=== PATIENT | female | born 1970 | race Caucasian/White ===

== ENCOUNTER → 2017-09-02 16:48 | Emergency (ER) | payer OTHER ==
[2014-07-30 08:20] VITALS: BMI 35.6
[~2017-09-02 16:48] MED LIST: HYDROCODONE-APA1 TAB PO; MECLIZINE HCL25 MG PO
[2017-09-02 17:25] LABS: BASOPHILS 0.1 % (0-2); HEMATOCRIT 42.2 % (36.0-48.0); HEMOGLOBIN 13.9 g/dL (12-16); IMMATURE GRANULOCYTES 0.2 % (0-5); LYMPHOCYTES 28.7 % (15-50); MCHC 32.9 g/dL (31.0-37.0); MCV 94.2 fL (80.0-100.0); MONOCYTES 7.2 % (2-11); NEUTROPHILS 61.8 % (40-80); PLATELET COUNT 297 10x3/uL (130-400); RBC 4.48 10x6/uL (4.00-5.40); RDW 12.7 % (11.5-14.5); WBC 8.6 10x3/uL (4.8-10.8)
[2017-09-02 17:41] LABS: ALBUMIN 3.8 g/dL (3.4-5.0); ALKALINE PHOSPHATASE 88 U/L (46-116); ALT (SGPT) 35 U/L (10-68); BILIRUBIN - TOTAL 0.27 mg/dL (0.2-1.3); CALC OSMOLALITY 277 mosm/kg (275-300); CALCIUM 8.6 mg/dL (8.5-10.1); CARBON DIOXIDE 27.6 mmol/L (21.0-32.0); CHLORIDE - SERUM 103 mmol/L (98-107); GLUCOSE 88 mg/dL (74-106); POTASSIUM - SERUM 3.6 mmol/L (3.5-5.1); PROTEIN - SERUM 7.7 g/dL (6.4-8.2); SODIUM 139 mmol/L (136-145); UREA NITROGEN 15 mg/dL (7-18); eGFR NON AFRICAN AMERICAN 64 mL/min (90-120)
[2017-09-02 18:01] LABS: CREATINE KINASE 58 UL (21-215)
[2017-09-02 18:03] LABS: TROPONIN-I < 0.017 ng/mL (0.000-0.060)
== END | disposition home or self-care (01) ==
LOC: D.ER 16:48
PROVIDERS: Family Medicine
DX: R00.2 Palpitations (principal); R00.0 Tachycardia, unspecified